=== PATIENT | female | born 1980 | race Caucasian/White ===

== ENCOUNTER → 2017-10-09 | Outpatient (CLI) | payer OTHER | LOC: FIMAGING 11:30 | PROVIDERS: ATTEND Advanced Practice Midwife | DX: O09.512 Supervision of elderly primigravida, second trimester (principal); Z3A.20 20 weeks gestation of pregnancy; J45.909 Unspecified asthma, uncomplicated; Z87.410 Personal history of cervical dysplasia ==

== ENCOUNTER 2018-02-28 17:45 | Inpatient (IN) | payer OTHER ==
[2018-02-28] MEDS ORDERED: IBUPROFEN 600 MG TAB PO PRN (18:56)
[2018-02-28] MEDS ORDERED: LR 1,000 ML IV PRN (18:56)
[2018-02-28] MEDS ORDERED: MISOPROSTOL 200 MCG TAB PO PRN (18:56)
[2018-02-28] MEDS ORDERED: OXYTOCIN/RINGERS LACTATE 1,000 ML IV PRN (18:56)
[2018-02-28] MEDS ORDERED: TERBUTALINE SULFATE 1 MG/ML VIAL IV PRN (18:56)
[2018-02-28] MEDS ORDERED: AMMONIA AROMATIC 1 EACH AMP IH PRN (18:56)
[2018-02-28] MEDS ORDERED: EPSOM SALT 454 GM TP PRN (18:56)
[2018-02-28] MEDS ORDERED: LIDOCAINE 1% 300 MG/30 ML SDV SC PRN (18:56)
[2018-02-28] MEDS ORDERED: OLIVE OIL 118 ML BTL MISC PRN (18:56)
--- NOTE | 2018-02-28 18:56 | PDGENHP ---
History and Physical History and Physical: Care: Center [facility] HPI: Patient is a 37 yo G 1 P 0 @ 40.6 weeks that presents to L&D with complaints of SROM 02/27 at 1645. Has tried multiple things to get into labor since, including castor oil around 3 pm. Per center protocol, patient required to transfer in to hospital if not actively laboring by 24 hours. EDC: 02/22/2018 which is based on LMP: 05/18/2017 which is known and consistent with Ultrasound at 21 weeks. Her is complicated by: Advanced Maternal Age; hx of cervical conization. Review of Systems: Constitutional: Denies any fever, chills, or fatigue HEENT: denies any visual changes, difficulty swallowing, hearing loss Cardiovascular: Denies any chest pain, palpitations, leg swelling Respiratory: denies any cough, wheezing, or shortness of breathe GI: Denies any nausea, vomiting, diarrhea, constipation : denies any dysuria, urgency, frequency, vaginal bleeding Musculoskeletal: denies any muscle or bone pain Skin: denies any rashes Neuro: denies any headache, seizures, lightheadedness, dizziness, or loss of consciousness Psychiatric: denies any depression, anxiety, or SI/HI thoughts 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 Family history: Not relevant Medications: PNV, Flovent BID Allergies (list reaction): NKDA LABS: Rh: O+ ABS: Neg Rubella: Immune HbsAg: NR HIV: NR VDRL: NR 1hr: 77 GC: Neg Chlamydia: Neg Pap: Normal GBS: neg BMI: unknown PHYSICAL EXAM: Constitutional: WN, A&Ox3 HEENT: normocephalic atraumatic, supple Skin: Warm, dry, intact Heart: RRR, no murmur Chest: CTA-B Abdomen: Soft, nontender, gravid SVE: Per Gwendolyn ABDI internal os 3-4, ext ; hx of conization Extremities: neg edema, negative homans sign Neuro: grossly normal Psych: normal affect assessment: FHT baseline 130 +accels, no decels, moderate variability Contractions: toco q q 2-3 minutes; pt states they just started recently. She is feeling them but not strong Assessment: 1) 37 yo G 1 P 0 with IUP@ 40.6 2) Prolonged rupture of membranes; latent labor 3) GBS neg 4) Cat 1 FHR tracing Plan: 1) Admit to L&D 2) Pt desires a noninterventive ; given frequency of contractions no medications indicated at this time. If contractions slow down would prefer misoprostil versus pitocin. 3) Discussed likelihood of need to break up scar tissue eventually but will wait until actively laboring to assess. 4) Limit SVE's due to prolonged rupture of membranes 5) requests: FOB would like to help catch baby, placenta delivered without clamping and cutting then ok to clamp and cut; time allowed for baby crawl. Today's visit was approximately 60 min, of which >50% of visit was spent face to face with pt on direct counseling/coordination of care.
[2018-02-28] MEDS ORDERED: LIDOCAINE 1% 300 MG/30 ML SDV ONE (20:56)
[2018-02-28] MEDS ORDERED: AMMONIA AROMATIC 1 EACH AMP IH ONE (20:56)
[2018-02-28] MEDS ORDERED: TERBUTALINE SULFATE 1 MG/ML VIAL ONE (20:56)
[2018-02-28] MEDS ORDERED: MISOPROSTOL 200 MCG TAB ONE (20:56)
[2018-02-28] MEDS ORDERED: OXYTOCIN 10 UNIT/ML VIAL ONE (20:56)
[2018-02-28] MEDS ORDERED: OLIVE OIL 118 ML BTL ONE (20:56)
[2018-03-01] MEDS ORDERED: METHYLERGONOVINE MAL 0.2 MG/ML INJ ONE (04:28)
[2018-03-01] MEDS ORDERED: HEMABATE 250 MCG/1 ML AMP IM ONE ×2 (04:32→05:55)
[2018-03-01] MEDS ORDERED: fentaNYL 100 MCG/2 ML INJ ONE (04:33)
[2018-03-01 04:59] LABS: PLATELET COUNT 275 10^3/uL (150-400)
[2018-03-01] MEDS ORDERED: TRANEXAMIC ACID 1,000 MG in NS 100 ML IV ONE (05:00)
--- NOTE | 2018-03-01 05:27 | OBPP ---
Progress Note Assessment/Plan: Assessment: 37 y/o s/p with PP hemorrhage due to uterine atony Plan: Pt is now stable after many interventions. We will start IV antibiotics and observe closely. 03/01/18 05:27 Subjective/ Course: 03/01/18 05:11 I was called to assess the patient for PP hemorrhage. She had after prolonged 2nd stage, spontaneous delivery of the placenta and then severe uterine atony. Trinity Giron was actively massaging the uterus, expressing clots. Pt had received IM pitocin, IM Methergine, [place] Cytotec and RN were actively attempting IV placement. She was alert and in pain from the uterine massage, significantly tachycardic in 150's, BP was stable. Quickly, we were able to attain IV access and begin rapid pitocin infusion, gave IM Hemabate and the uterus finally begin to respond and achieve tone. We gave Transexemic acid IV as well. I then assessed her laceration and she had a deep right vaginal sulcus laceration. We had given her IV Fentanyl, 2 dose of 50 mg. I infiltrated the laceration with 1% lidocaine and repaired in layers of 2-0 vicryl. Her bleeding rapidly improved with good uterine tone. She tolerated the repair well. Total EBL 1700. After we received CBC results, her WBC was 29 and she had prolonged ROM with multiple vaginal exams prior to her arrival her at [facility]. We will give IV Rocephin and Flagyl for broad spectrum coverage. Objective: 03/01/18 04:36 Uterine Position/Fundal Height: Umbilicus -3 Uterine Tone: Firm
--- NOTE | 2018-03-01 05:27 | OBDEL ---
Info Type: Vaginal Presentation at Delivery: Vertex L&D Analgesia/Anesthesia Type: Nitrous GBS+: No Indications for Delivery: SROM (prolonged rupture of membranes; spontaneous labor on admission to hospital after transfer in from center) Vaginal Delivery - Delivery Provider Delivery Physician/CNM: Trinity Giron - Labor and Delivery Onset of Contractions Date: 02/28/18 Onset of Contractions Time: 16:45 Onset of Contractions Type: Spontaneous Rupture of Membranes Date: 02/27/18 Rupture of Membranes Time: 14:45 Rupture of Membranes Type: Premature Amniotic Fluid Color: Clear Dilation Complete Date: 03/01/18 Dilation Complete Time: 01:15 Placenta Delivery Date: 03/01/18 Placenta Delivery Time: 04:30 Total Hours of Labor: 11 Laceration: 2nd Degree (vaginal) Repair: 3-0, Vicryl Vaginal Sponge Count Correct: Yes Vaginal Needle Count Correct: Yes Vaginal Sweep Performed: Yes EBL: 1750 Delivery Events: Post Hemorrhage (Immediately after delivery of the placenta; significant bleeding noted. Pitocin 10 iu administered IM while fundal massage initiated. Fundus boggy and significant bleeding continued. She had not emptied her bladder for several hours; pt catheterized with about 1000 ml urine out. During this time bleeding continued. Saline lock was placed , while cytotec 800 mcg placed rectally, Dr Mujica notified and requested to come to the room, and methergine 0.2 mg adminitered IM. During this time bimanual compression was intiated and entire uterus noted to be boggy, including lower uterine segment. Dr Mujica arrived in the room to assess. A second IV was initiated and a 1 liter pitocin bag was hung wide open. Hemabate was then administered. Fundus began having some tone but lower uterine segment remained boggy and several clots removed. Maintained constant pressure and fundus as well as lower uterine segment firmed up, bleeding slowed to mimimal. Once bleeding stabilized, Dr Mujica assessed further and repaired laceration. After repair and additional 250 ml clots expressed, fundus remained firm and bleeding minimal thereafter.) [place] Data SHORTY: 02/22/18 Gestational Age: 41 week(s) and 0 day(s) Twin A Delivery Date: 03/01/18 Delivery Time: 04:05 Sex of Infant: Female [place] Weight (gm): 3674 kg Score (1 Min): 8 Score (5 Min): 10 ICD10 Worksheet Patient Problems: Problems Problem Status Onset Encounter for full-term uncomplicated delivery Acute Labor/delivery complication, delivered Acute hemorrhage Acute Prolonged rupture of membranes, greater than 24 hours, delivered Acute - ICD10 Problem Qualifiers (1) Encounter for full-term uncomplicated delivery (2) Labor/delivery complication, delivered (3) hemorrhage Qualifiers: hemorrhage type: third-stage Qualified Code(s): O72.0 - Third- stage hemorrhage (4) Prolonged rupture of membranes, greater than 24 hours, delivered
[2018-03-01] MEDS ORDERED: DIPHENOXYLATE/ATROPINE LOMOTIL 1 TAB PO ONE (05:52)
[2018-03-01] MEDS ORDERED: fentaNYL 100 MCG/2 ML INJ IVP ONE ×2 (05:54→06:45)
[2018-03-01] MEDS ORDERED: METHYLERGONOVINE MAL 0.2 MG/ML INJ IM ONE (05:55)
[2018-03-01] MEDS ORDERED: ceFAZolin 0.5 GM in NS 50 ML IV SCH (06:00)
[2018-03-01] MEDS ORDERED: SIMETHICONE 80 MG TAB CHEW PO PRN (06:21)
[2018-03-01] MEDS ORDERED: oxyCODONE IR 5 MG TAB PO PRN (06:21)
[2018-03-01] MEDS ORDERED: HYDROCORTISONE 0.5% CREAM TP PRN (06:21)
[2018-03-01] MEDS: ACETAMINOPHEN 325 MG TAB PO SCH ×3 (06:38→22:12)
[2018-03-01] MEDS: ceFAZolin 2 GM/DEXTROSE 100 ML IV SCH ×3 (07:27→23:49)
[2018-03-01] MEDS: IBUPROFEN 600 MG TAB PO SCH ×3 (08:50→22:13)
--- NOTE | 2018-03-01 17:29 | OBPP ---
Progress Note Assessment/Plan: Assessment: 37 y/o P1 s/p and pp hemorrhage asymptomatic at this time - tolerating activity Awaiting results of CBC Plan: Routine pp care Iron BID 03/01/18 17:25 Subjective/ Course: 03/01/18 05:11 I was called to assess the patient for PP hemorrhage. She had after prolonged 2nd stage, spontaneous delivery of the placenta and then severe uterine atony. Trinity Ervines was actively massaging the uterus, expressing clots. Pt had received IM pitocin, IM Methergine, [place] Cytotec and RN were actively attempting IV placement. She was alert and in pain from the uterine massage, significantly tachycardic in 150's, BP was stable. Quickly, we were able to attain IV access and begin rapid pitocin infusion, gave IM Hemabate and the uterus finally begin to respond and achieve tone. We gave Transexemic acid IV as well. I then assessed her laceration and she had a deep right vaginal sulcus laceration. We had given her IV Fentanyl, 2 dose of 50 mg. I infiltrated the laceration with 1% lidocaine and repaired in layers of 2-0 vicryl. Her bleeding rapidly improved with good uterine tone. She tolerated the repair well. Total EBL 1700. After we received CBC results, her WBC was 29 and she had prolonged ROM with multiple vaginal exams prior to her arrival her at [facility]. We will give IV Rocephin and Flagyl for broad spectrum coverage. 03/01/18 17:27 Feeling good, is tired but has not slept much in the last few days. Trying to rest when baby rests. Was dizzy with activity earlier today, but has been up X2 since then and tolerated without dizziness. Vaginal bleeding wnl, pain well controlled with oral pain meds, voiding fine. Objective: Patient ABO/Rh O POSITIVE 03/01/18 04:36 Temp Pulse Resp BP Pulse Ox 36.6 C 103 H 16 107/68 96 03/01/18 15:15 03/01/18 15:15 03/01/18 15:15 03/01/18 15:15 03/01/18 15:15 Uterine Position/Fundal Height: Umbilicus -1 Uterine Tone: Firm
[2018-03-01 17:38] LABS: PLATELET COUNT 215 10^3/uL (150-400)
[2018-03-01] MEDS: FERROUS SULFATE 325 MG TAB PO SCH (22:13)
[2018-03-02] MEDS: ACETAMINOPHEN 325 MG TAB PO SCH ×4 (06:26→19:52)
[2018-03-02] MEDS: IBUPROFEN 600 MG TAB PO SCH ×3 (06:29→19:52)
[2018-03-02] MEDS: ceFAZolin 2 GM/DEXTROSE 100 ML IV SCH ×2 (07:49→15:24)
[2018-03-02] MEDS: FERROUS SULFATE 325 MG TAB PO SCH ×2 (12:54→19:52)
--- NOTE | 2018-03-02 13:02 | OBPP ---
Progress Note Assessment/Plan: Assessment: [id number] S/p with PPH PPD#1 Plan: routine PP care cont PO iron BID support PRN 03/02/18 19:18 Subjective/ Course: 03/01/18 05:11 I was called to assess the patient for PP hemorrhage. She had after prolonged 2nd stage, spontaneous delivery of the placenta and then severe uterine atony. Trinity Giron was actively massaging the uterus, expressing clots. Pt had received IM pitocin, IM Methergine, [place] Cytotec and RN were actively attempting IV placement. She was alert and in pain from the uterine massage, significantly tachycardic in 150's, BP was stable. Quickly, we were able to attain IV access and begin rapid pitocin infusion, gave IM Hemabate and the uterus finally begin to respond and achieve tone. We gave Transexemic acid IV as well. I then assessed her laceration and she had a deep right vaginal sulcus laceration. We had given her IV Fentanyl, 2 dose of 50 mg. I infiltrated the laceration with 1% lidocaine and repaired in layers of 2-0 vicryl. Her bleeding rapidly improved with good uterine tone. She tolerated the repair well. Total EBL 1700. After we received CBC results, her WBC was 29 and she had prolonged ROM with multiple vaginal exams prior to her arrival her at [facility]. We will give IV Rocephin and Flagyl for broad spectrum coverage. 03/01/18 17:27 Feeling good, is tired but has not slept much in the last few days. Trying to rest when baby rests. Was dizzy with activity earlier today, but has been up X2 since then and tolerated without dizziness. Vaginal bleeding wnl, pain well controlled with oral pain meds, voiding fine. 03/02/18 19:19 Pt doing well, states she feels tired, but appropriate. She is ambulating and voiding without difficulty. She denies any headaches, visual changes, dizziness. She is - latching well. She is working with PRN. FOB, supportive and at BS Objective: 03/01/18 17:00 Patient ABO/Rh O POSITIVE 03/01/18 04:36 Temp Pulse Resp BP Pulse Ox 36.4 C 81 19 95/62 L 95 03/02/18 08:30 03/02/18 08:30 03/02/18 08:30 03/02/18 08:30 03/02/18 08:30 Uterine Position/Fundal Height: Umbilicus -1, Midline Uterine Tone: Firm Physical Exam - Physical Exam General Appearance: WD/WN, alert, no apparent distress Respiratory: normal breath sounds Cardiac/Chest: regular rate, rhythm Abdomen: non-tender, soft Skin: normal color, warm/dry Neuro/Psych: alert, normal mood/affect, oriented x 3
[2018-03-03] MEDS: IBUPROFEN 600 MG TAB PO SCH ×2 (06:05→06:07)
[2018-03-03] MEDS: ACETAMINOPHEN 325 MG TAB PO SCH ×3 (06:06→15:37)
[2018-03-03 08:52] VITALS: BP 109/67
[2018-03-03] MEDS: FERROUS SULFATE 325 MG TAB PO SCH (09:15)
--- NOTE | 2018-03-03 10:22 | OBGCSDC ---
General Delivery Information - General Info : 1 Para: 1 Abortions: 0 Type: Vaginal L&D Analgesia/Anesthesia Type: None, Nitrous Admission Date: 02/28/18 Labs: Patient ABO/Rh O POSITIVE 03/01/18 04:36 Hct 27.3 % (38.0-47.0) L 03/01/18 17:00 - Hospital Course : 03/01/18 05:11 I was called to assess the patient for PP hemorrhage. She had after prolonged 2nd stage, spontaneous delivery of the placenta and then severe uterine atony. Trinity Giron was actively massaging the uterus, expressing clots. Pt had received IM pitocin, IM Methergine, [place] Cytotec and RN were actively attempting IV placement. She was alert and in pain from the uterine massage, significantly tachycardic in 150's, BP was stable. Quickly, we were able to attain IV access and begin rapid pitocin infusion, gave IM Hemabate and the uterus finally begin to respond and achieve tone. We gave Transexemic acid IV as well. I then assessed her laceration and she had a deep right vaginal sulcus laceration. We had given her IV Fentanyl, 2 dose of 50 mg. I infiltrated the laceration with 1% lidocaine and repaired in layers of 2-0 vicryl. Her bleeding rapidly improved with good uterine tone. She tolerated the repair well. Total EBL 1700. After we received CBC results, her WBC was 29 and she had prolonged ROM with multiple vaginal exams prior to her arrival her at [facility]. We will give IV Rocephin and Flagyl for broad spectrum coverage. 03/01/18 17:27 Feeling good, is tired but has not slept much in the last few days. Trying to rest when baby rests. Was dizzy with activity earlier today, but has been up X2 since then and tolerated without dizziness. Vaginal bleeding wnl, pain well controlled with oral pain meds, voiding fine. 03/02/18 19:19 Pt doing well, states she feels tired, but appropriate. She is ambulating and voiding without difficulty. She denies any headaches, visual changes, dizziness. She is - latching well. She is working with PRN. FOB, supportive and at BS 03/03/18 10:21 Doing well, up to bathroom independently. Had BM. BF well. Tolerating PO. Pain well controlled Vaginal - Delivery Provider Delivery Physician/CNM: Trinity Giron - Diagnosis Labor: Spontaneous Rupture of Membranes Type: Premature Amniotic Fluid Color: Clear Laceration: 2nd Degree (vaginal) Repair: 3-0, Vicryl Delivery Events: Post Hemorrhage (Immediately after delivery of the placenta; significant bleeding noted. Pitocin 10 iu administered IM while fundal massage initiated. Fundus boggy and significant bleeding continued. She had not emptied her bladder for several hours; pt catheterized with about 1000 ml urine out. During this time bleeding continued. Saline lock was placed , while cytotec 800 mcg placed rectally, Dr Mujica notified and requested to come to the room, and methergine 0.2 mg adminitered IM. During this time bimanual compression was intiated and entire uterus noted to be boggy, including lower uterine segment. Dr Mujica arrived in the room to assess. A second IV was initiated and a 1 liter pitocin bag was hung wide open. Hemabate was then administered. Fundus began having some tone but lower uterine segment remained boggy and several clots removed. Maintained constant pressure and fundus as well as lower uterine segment firmed up, bleeding slowed to mimimal. Once bleeding stabilized, Dr Mujica assessed further and repaired laceration. After repair and additional 250 ml clots expressed, fundus remained firm and bleeding minimal thereafter.) - Delivery EBL: 1750 [place] Data SHORTY: 02/22/18 Gestational Age: 41 week(s) and 2 day(s) Twin A Delivery Date: 03/01/18 Delivery Time: 04:05 Sex of : Female [place] Weight (gm): 3674 kg Score (1 Min): 8 Score (5 Min): 10 Discharge Information - Discharge Information Prescriptions: Ferrous Sulfate [Ferrous Sulf 325 MG (*)] 325 mg PO BID #60 tab Ibuprofen [Motrin (*)] 600 mg PO Q6H #30 tab Instruction/Follow Up: Two Weeks (F/U at center or [facility])
== END 2018-03-03 12:50 | disposition home or self-care (01) | DRG 806 ==
LOC: FLD 17:45 → FOB 03-01 10:01
PROVIDERS: ADMIT Advanced Practice Midwife; ATTEND Advanced Practice Midwife
DX: O62.0 Primary inadequate contractions (principal); O72.1 Other immediate postpartum hemorrhage; Z37.0 Single live birth; O70.1 Second degree perineal laceration during delivery; Z3A.41 41 weeks gestation of pregnancy
CPT/HCPCS: J0690; J2210; J2590; J3010; J3105